=== PATIENT | male | born 1975 | race Caucasian/White ===

== ENCOUNTER 2024-05-20 19:49 | Emergency (ER) | payer OTHER, SELFPAY ==
[2024-05-20 19:51] VITALS: BP 162/132; PULSE 88; RESP 20; TEMP 37.1; O2SAT 93; BMI 33.0
--- NOTE | 2024-05-20 20:04 | XR_ITS ---
PROCEDURE INFORMATION: Exam: XR Chest Exam date and time: 05/20/2024 8:15 PM Age: 48 years old Clinical indication: Cough TECHNIQUE: Imaging protocol: Radiologic exam of the chest. Views: 2 views. COMPARISON: No relevant prior studies available. FINDINGS: Lungs: Subtle interstitial haziness reflecting interstitial pneumonia. No consolidation. Pleural spaces: Unremarkable. No pleural effusion. No pneumothorax. Heart/Mediastinum: Unremarkable. No cardiomegaly. Bones/joints: Unremarkable. IMPRESSION: Subtle interstitial haziness reflecting interstitial pneumonia.
[2024-05-20 20:08] LABS: Coronavirus 19, PCR Not Detected (NotDetected); Influenza A, PCR Not Detected (NotDetected); Influenza B, PCR Not Detected (NotDetected)
--- NOTE | 2024-05-20 20:15 | ED_ITS ---
Discharge Plan Disposition Patient Disposition: Home, Self-Care Prescriptions Prescriptions: New doxycycline hyclate 100 mg capsule 100 mg PO BID 7 Days Qty: 14 0RF Referrals Follow up/Referrals: Modesta Mares APRN [Primary Care Provider] - See instructions Activity Restrictions/Add. Instructions Additional Instructions/Restrictions: At this time it was felt you are safe to be discharged home. If new or worsening symptoms please do not hesitate to return the emergency department. Your antibiotics as prescribed. The pneumonia on your chest x-ray can last for a while. Please follow-up with your family doctor for long-term management of your likely chronic lung disease. Clinical Impressions Clinical Impression: Atypical pneumonia Print Language Print Language: Citizen Of [place] Discharge ED Provider: Mendez Viera General Adult HPI General Chief complaint: Recheck/Abnormal Lab/Rx Stated complaint: sent by Modesta Mares- mackenzie pneumonia Time Seen by Provider: 05/20/24 19:50 Mode of Arrival: Ambulatory Source of Information: Patient Limitations: No Limitations Description of Symptoms (Recalled from ER Triage Doc. by RN): pt reports his PCP sent him over after she took chest xrays, he thinks she said he had pneumonia on those xray. pt reports he was sick with a cough on but he feels fine now. pt denies any fevers. History of Present Illness HPI narrative: Patient is a 48-year-old male with no diagnosis of COPD who presents emergency department at the behest of his PCP. Patient has been seen a few times over the last couple of weeks by his family doctor. He is on Suboxone for which she has been compliant. and Monday he had cough and shortness of breath which largely resolved Monday and has been completely better since Monday. He denies ongoing shortness of breath chest pain or any symptom at this time. His PCP became concerned with his oxygen levels and may have seen pneumonia on his chest x-ray and so encouraged him to come here for continued evaluation. He is already completed a course of steroids and antibiotics. Is not known to him which antibiotic he took. Related Data Previous Rx's ?Medication ?Instructions ?Recorded doxycycline hyclate 100 mg capsule 100 mg PO BID atypical pneumonia 7 05/20/24 days #14 caps Allergies Allergy/AdvReac Type Severity Reaction Status Date / Time Penicillins AdvReac Rash Verified 05/20/24 20:11 [facility] Disclaimer: The information contained in this section may have been updated after the patient was seen, as this information can be updated by other users. Social History Smoking Status: Never smoker alcohol intake: never current occupational status: other Travel in the last 8 weeks: None ROS Obtained: Yes Systems reviewed as appropriate & no additional complaints except as documented Physical Exam General General appearance: alert and in no apparent distress Head Head exam: atraumatic and normocephalic Eye Eye exam: Present PERRL and EOMI ENT ENT exam: Present mucous membranes moist Neck Neck exam: Present normal inspection Chest Chest inspection: Present normal inspection and symmetric chest wall rise Respiratory Respiratory exam: Present normal lung sounds bilaterally; Absent respiratory distress, wheezes or accessory muscle use Cardiovascular Cardiovascular exam: Present regular rate and normal rhythm Abdominal Exam Abdominal exam: Present soft Extremities Exam Extremities exam: Present normal inspection Neurological Exam Neurological exam: Present alert Psychiatric Psychiatric exam: Present normal affect Skin Skin exam: Present warm and dry Medical Decision Making Medical Records Screening: Per USPSTF and CDC recommendations, given the prevalence of disease in our region, it is our hospital?s policy to screen for HIV and viral Hepatitis for all patients aged 18 and over and those with ongoing risk factors. Luc Inquiry Pt receiving controlled substance: No Vital Signs: 05/20/24 19:51 Temperature 98.8 F Temperature Source Oral Pulse Rate [Right] 88 Respiratory Rate 20 Blood Pressure [Right Arm] 162/132 H Blood Pressure Mean [Right Arm] 142 02 Sat by Pulse Oximetry 93 L Oxygen Delivery Method Room Air Orders (Tests/Meds): ED MEDICATIONS Generic Name Dose Route Start Last Admin Trade Name Freq PRN Reason Stop Dose Admin Doxycycline Hyclate 100 mg 05/20/24 20:37 Doxycycline Hycl 100 Mg Tablet PO 05/20/24 20:38 ONCE ONE ORDERS Category Date Time Status CXR 2 view (NOT portable) [XR chest 2V] Stat Exams 05/20/24 20:04 Taken Rapid PCR Covid and Flu A/B Stat Lab 05/20/24 20:05 Received Medical Decision Narrative: In summary patient is 48-year-old male past medical history described above who presents emergency department for evaluation of previous shortness of breath which has resolved prior to arrival. Patient is hemodynamically stable nontoxi c-appearing upon arrival, afebrile. His oxygen saturation is between 89 and 93% which is where I would expected to be after smoking for multiple decades. He is clear to auscultation all lung sesay has no shortness of breath no acute complaints of chest pain and states that he is at his baseline. Given this workup with labs was considered but will be deferred at this time. Given report of possible pneumonia screening chest x-ray will be conducted and swab for flu and COVID be conducted however other workup is not indicated at this time. Chest x-ray informally interpreted by me and consistent with atypical pneumonia. Given that patient is largely asymptomatic and continues to maintain his oxygen saturations greater than 90% he is appropriate for outpatient management at this time will be discharged with a course of doxycycline first dose administered here and was given return precautions verbalized understanding. Critical Care Critical Care Time Critical Care Time: No
[2024-05-20] MEDS: DOXYCYCLINE HYCL 100 MG TABLET PO (20:39)
[2024-05-20 20:42] VITALS: BP 138/83; PULSE 70; RESP 16; TEMP 36.9; O2SAT 93
== END 2024-05-20 20:46 | disposition home or self-care (01) ==
PROVIDERS: Emergency Provider Emergency Medicine; PCP Nurse Practitioner Family
DX: J18.9 Pneumonia, unspecified organism (principal); R06.02 Shortness of breath; R05.9 Cough, unspecified
CPT/HCPCS: 71046; 87636; 99283